=== PATIENT | female | born 1940 | race Caucasian/White ===

== ENCOUNTER 2020-04-22 19:27 | Emergency (ER) | payer OTHER ==
[~2020-04-22] VITALS: Ht 142.2 cm; Wt 36.3 kg
[~2020-04-22 19:27] MED LIST: ASACOL; AVALIDE 300-12.1 TAB PO; CIPRO100 MG PO; CIPRO500 MG PO; COZAAR25 MG; HYZAAR 100-121 UDTAB; KLONOPIN0.125 MG/T; PREDNISOLONE5 MG; PROTONIX40 MG; ULTRACET; ZOLOFT25 MG
[2020-04-22] MEDS ORDERED: MONTELUKAST SOD10 MG PO (19:46)
[2020-04-22] MEDS ORDERED: CENTRUM SILVER ULTRA (19:46)
[2020-04-22] MEDS ORDERED: GALANTAMINE HBR8 MG PO (19:46)
[2020-04-22] MEDS ORDERED: LOSARTAN-HCTZ1 EACH PO (19:46)
[2020-04-22] MEDS ORDERED: SERTRALINE HCL25 MG PO (19:47)
== END 2020-04-22 21:29 | disposition home or self-care (01) ==
LOC: ER 19:27
DX: S80.02XA Contusion of left knee, initial encounter (principal); S70.12XA Contusion of left thigh, initial encounter; S70.02XA Contusion of left hip, initial encounter; M54.5 Low back pain; W18.09XA Striking against other object with subsequent fall, initial encounter; Y93.89 Activity, other specified; Y92.018 Other place in single-family (private) house as the place of occurrence of the external cause; Y99.8 Other external cause status

== ENCOUNTER 2021-03-20 18:25 | Emergency (ER) | payer OTHER ==
[~2021-03-20] VITALS: Ht 139.7 cm; Wt 39.9 kg
[~2021-03-20 18:25] MED LIST changes: +CENTRUM SILVER ULTRA; +GALANTAMINE HBR8 MG PO; +LOSARTAN-HCTZ1 EACH PO; +MONTELUKAST SOD10 MG PO; +SERTRALINE HCL25 MG PO
[2021-03-20] MEDS ORDERED: MEMANTINE HCL10 MG PO ×2 (18:45→18:46)
[2021-03-20] MEDS ORDERED: DONEPEZIL HCL10 MG PO (18:46)
[2021-03-20] MEDS ORDERED: RESTORIL30 MG PO (18:46)
[2021-03-20] MEDS ORDERED: LEVOCETIRIZINE D5 MG PO (18:47)
[2021-03-20] MEDS ORDERED: SERTRALINE HCL50 MG PO (18:47)
[2021-03-20] MEDS ORDERED: RAZADYNE ER16 MG PO (18:47)
== END 2021-03-21 20:00 | disposition home or self-care (01) ==
LOC: ER 18:25
DX: I62.01 Nontraumatic acute subdural hemorrhage (principal); I67.89 Other cerebrovascular disease; I10 Essential (primary) hypertension; G81.94 Hemiplegia, unspecified affecting left nondominant side; R20.0 Anesthesia of skin; N39.0 Urinary tract infection, site not specified; B96.1 Klebsiella pneumoniae [K. pneumoniae] as the cause of diseases classified elsewhere; R31.29 Other microscopic hematuria; Z03.818 Encounter for observation for suspected exposure to other biological agents ruled out
CPT/HCPCS: 70551

== ENCOUNTER 2021-06-03 13:05 | Emergency (ER) | payer OTHER ==
[~2021-06-03] VITALS: Ht 165.1 cm; Wt 49.9 kg
[~2021-06-03 13:05] MED LIST changes: +DONEPEZIL HCL10 MG PO; +LEVOCETIRIZINE D5 MG PO; +MEMANTINE HCL10 MG PO; +RAZADYNE ER16 MG PO; +RESTORIL30 MG PO; +SERTRALINE HCL50 MG PO
== END 2021-06-03 18:10 | disposition home or self-care (01) ==
LOC: ER 13:05
DX: S13.8XXA Sprain of joints and ligaments of other parts of neck, initial encounter (principal); X50.9XXA Other and unspecified overexertion or strenuous movements or postures, initial encounter; Y93.89 Activity, other specified; Y92.89 Other specified places as the place of occurrence of the external cause; Y99.8 Other external cause status

== ENCOUNTER 2021-11-12 21:02 | Inpatient (IN) | payer OTHER ==
[~2021-11-12] VITALS: Ht 157.5 cm; Wt 72.6 kg
[2021-11-13] MEDS ORDERED: SILVER SULFADIA50 GM (13:03)
[2021-11-13] MEDS ORDERED: LOSARTAN POTASS50 MG (13:03)
== END 2021-11-24 14:36 | disposition home or self-care (01) | DRG 603 ==
LOC: ER 21:02 → MEDJ 11-13 11:42 → SEC-K 11-13 11:42 → MEDJ 11-13 12:50
PROVIDERS: ADMIT Internal Medicine; ATTEND Internal Medicine
PROC: BW28ZZZ Computerized Tomography (CT Scan) of Head (ICD-10-PCS; principal; 2021-11-13)
PROC: 02HV33Z Insertion of Infusion Device into Superior Vena Cava, Percutaneous Approach (ICD-10-PCS; 2021-11-17)
DX: L03.115 Cellulitis of right lower limb (principal); N39.0 Urinary tract infection, site not specified; Z16.12 Extended spectrum beta lactamase (ESBL) resistance; I69.354 Hemiplegia and hemiparesis following cerebral infarction affecting left non-dominant side; B96.1 Klebsiella pneumoniae [K. pneumoniae] as the cause of diseases classified elsewhere; B95.2 Enterococcus as the cause of diseases classified elsewhere; B95.62 Methicillin resistant Staphylococcus aureus infection as the cause of diseases classified elsewhere; R53.81 Other malaise; L08.0 Pyoderma; I10 Essential (primary) hypertension; Z20.822 Contact with and (suspected) exposure to COVID-19; G30.8 Other Alzheimer's disease; F02.80 Dementia in other diseases classified elsewhere, unspecified severity, without behavioral disturbance, psychotic disturbance, mood disturbance, and anxiety; Z93.2 Ileostomy status

== ENCOUNTER 2022-02-28 20:39 | Emergency (ER) | payer OTHER ==
[~2022-02-28] VITALS: Ht 142.2 cm; Wt 49.9 kg
[~2022-02-28 20:39] MED LIST changes: +LOSARTAN POTASS50 MG; +SILVER SULFADIA50 GM
[2022-02-28] MEDS ORDERED: RESTORIL15 MG PO (20:55)
[2022-02-28] MEDS ORDERED: LEVOFLOXACIN750 MG PO (22:48)
== END 2022-03-01 00:12 | disposition home or self-care (01) ==
LOC: ER 20:39
DX: N39.0 Urinary tract infection, site not specified (principal); I16.9 Hypertensive crisis, unspecified; Z20.828 Contact with and (suspected) exposure to other viral communicable diseases

== ENCOUNTER 2022-03-15 11:50 | Inpatient (IN) | payer OTHER ==
[~2022-03-15] VITALS: Ht 142.2 cm; Wt 59.0 kg
[~2022-03-15 11:50] MED LIST changes: +LEVOFLOXACIN750 MG PO; +RESTORIL15 MG PO
--- NOTE | 2022-03-15 12:24 | NUR ---
SE RECIBE PTE EN AMBULANCIA ALERTA Y ACTIVA ACOMPANADA POR FAMILIAR A CUAL REFIERE QUE LA PTE ESTA DEBIL,NO ESTA COMIENDO LEEANNE ,REFIERE QUE TIENE FALLO RENAL.
--- NOTE | 2022-03-15 13:13 | NUR ---
PTE ES EVALUADO POR QUIEN ORDENA TX MED SE EDUCA PTE SOBRE EL MIMSO Y REIFER ENTENDER. PTE SE CANALIZA EN BRAZO DERECHO CON ANGIO 22 PTE PEND A LABS.
--- NOTE | 2022-03-15 18:00 | NUR ---
PTE RE-EVALUADA POR . SE INTENTA ORIENTAR PTE AL MOMENTO LA MISMA DESORIENTADA Y SIN FAMILIAR AL MOMENTO. SE COLECTAN MUESTRAS DE LABORATORIOS, BAJO MEDIDAS ASEPTICAS. SE INTENTA CANALIZAR PTE EN MULTIPLES OCASIONES SIN EXITO AL MOMENTO. JEANETTE VALENTIN INTENTA CANALIZAR PTE EN VARIAS OCASIONES SIN EXITO BARBARA MOMENTO. SE NOTIFICA A . SE INSERTA SONDA URINARIA, TAMANO F#16 BAJO MEDIDAS ASEPTICAS Y ESTERILES, SE OBSERVA EGRESO DE ORINA COLOR AMARILLA RADHA CON APROXIMADAMENTE 25ML. PERSONAL DE TERAPIA RESPIRATORIA REALIZA ABGS DE PTE.
--- NOTE | 2022-03-15 19:00 | NUR ---
PERSONAL DE ANESTESIA MRS.KERNS INTENTA COLOCAR ABCESO YUGULAR, E INTENTA CANALIZAR PERIFERAL EN VARIAS OCASIONES SIN EXITO AL MOMENTO. SE NOTIFICA A .
== END 2022-04-05 11:09 | disposition expired | DRG 872 ==
LOC: ER 11:50 → ICU-2 22:57 → ICU 03-20 02:53 → MEDI 03-20 12:17 → MEDJ 03-27 11:58
PROVIDERS: ADMIT Internal Medicine; ATTEND Internal Medicine
PROC: 02HV33Z Insertion of Infusion Device into Superior Vena Cava, Percutaneous Approach (ICD-10-PCS; principal; 2022-03-15)
PROC: 4A12X4Z Monitoring of Cardiac Electrical Activity, External Approach (ICD-10-PCS; 2022-03-20)
PROC: 0DH63UZ Insertion of Feeding Device into Stomach, Percutaneous Approach (ICD-10-PCS; 2022-03-26)
PROC: 3E0G76Z Introduction of Nutritional Substance into Upper GI, Via Natural or Artificial Opening (ICD-10-PCS; 2022-03-26)
PROC: 8E0ZXY6 Isolation (ICD-10-PCS; 2022-03-30)
DX: A41.01 Sepsis due to Methicillin susceptible Staphylococcus aureus (principal); N39.0 Urinary tract infection, site not specified; K51.90 Ulcerative colitis, unspecified, without complications; N17.9 Acute kidney failure, unspecified; E87.20 Acidosis, unspecified; I16.9 Hypertensive crisis, unspecified; E46 Unspecified protein-calorie malnutrition; Z16.24 Resistance to multiple antibiotics; B96.89 Other specified bacterial agents as the cause of diseases classified elsewhere; I12.9 Hypertensive chronic kidney disease with stage 1 through stage 4 chronic kidney disease, or unspecified chronic kidney disease; N18.9 Chronic kidney disease, unspecified; E86.0 Dehydration; E11.51 Type 2 diabetes mellitus with diabetic peripheral angiopathy without gangrene; G30.9 Alzheimer's disease, unspecified; F02.80 Dementia in other diseases classified elsewhere, unspecified severity, without behavioral disturbance, psychotic disturbance, mood disturbance, and anxiety; R54 Age-related physical debility; R63.30 Feeding difficulties, unspecified; R13.19 Other dysphagia; Z93.2 Ileostomy status; Z74.01 Bed confinement status; Z66 Do not resuscitate